=== PATIENT | male | born 1980 ===

== ENCOUNTER 2021-03-08 19:46 | Inpatient (IN) | payer MEDICARE, SELFPAY ==
[2021-03-08 19:49] VITALS: BP 123/87; PULSE 85; RESP 18; TEMP 36.6; O2SAT 98; BMI 29.2
[2021-03-08 20:19] LABS: Basophils % 0.3 %; Eosinophils % 0.2 %; Hematocrit 46.6 % (42.0-52.0); Hemoglobin 15.3 g/dL (11.7-16.6); Lymphocytes # 1.7 10^3/uL (0.8-4.8); Lymphocytes % 13.6 %; Mean Corpuscular HGB Conc 32.8 g/dL (30.0-36.0); Mean Corpuscular Hemoglobin 30.6 pg (28.0-34.0); Mean Corpuscular Volume 93.2 fL (80-94); Mean Platelet Volume 10.1 fL (7.4-10.4); Monocytes # 0.7 10^3/uL (0.2-0.9); Monocytes % 5.3 %; Neutrophils # 9.84 10^3/uL (1.8-7.7); Neutrophils % 80.2 %; Nucleated Red Blood Cells % 0 %; Platelet Count 399 10^3/cmm (130-400); Red Cell Distribution Width 12.9 % (12.1-15.1); White Blood Count 12.3 10^3/uL (4.0-10.0)
[2021-03-08 20:44] LABS: Alanine Aminotransferase 28 U/L (0-41); Albumin Level 4.9 g/dL (3.5-5.2); Alkaline Phosphatase 122 IU/L (40-130); Anion Gap 16.9 (5-19); Aspartate Amino Transferase 19 U/L (0-40); Blood Urea Nitrogen 9 mg/dL (6-20); Calcium 9.2 mg/dL (8.5-10.5); Carbon Dioxide 24 mmol/L (22-29); Chloride 100 mmol/L (98-107); Globulin 3.4 g/dL (1.3-4.6); Glomerular Filtration Rate 106.5 mL/min (90-130); Glucose 79 mg/dL (65-115); Osmolality Calculated 282 mOsm/kg (285-295); Potassium 3.9 mmol/L (3.5-5.1); Sodium 137 mmol/L (136-145); Total Bilirubin 0.4 mg/dL (0.15-1.2); Total Protein 8.3 g/dL (6.6-8.7)
[2021-03-08 20:45] LABS: Acetaminophen < 5.0 ug/mL (10-30); Salicylate < 0.3 mg/dL (3-10)
[2021-03-08 21:02] LABS: Add Urine Microscopic? NO; Charge for UA Resulting for Rev
[2021-03-08 21:18] LABS: Bilirubin Urine Neg (Negative); Blood Urine Neg (Negative); Glucose Urine UA Norm (Normal); Ketones Urine 3+ (Negative); Leukocyte Esterase Urine Negative (Negative); Nitrate Urine Negative (Negative); Protein Urine Neg (Negative); Sulfosalicylic Acid Urine Negative (Negative); Urine Appearance Clear (CLEAR); Urine Color Yellow (Yellow); Urobilinogen Urine 1 mg/dL (Negative); pH Urine 6.5 (5-7)
[2021-03-08 21:22] LABS: Amphetamines Screen Urine Negative (Negative); Barbiturates Screen Urine Negative (Negative); Benzodiazepines Screen Urine Negative (Negative); Cocaine Screen Urine Negative (Negative); Opiate Screen Urine Negative (Negative); PCP Screen Urine Negative (Negative); THC Screen Urine Positive (Negative)
[2021-03-08 22:18] VITALS: BMI 29.2
--- NOTE | 2021-03-08 23:23 | PC.NURSE ---
Skin assessment revealed self inflicted cuts to left arm not needing sutures. No other wounds or injuries noted.
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
[2021-03-09 06:00] VITALS: BP 127/78; PULSE 94; RESP 17; TEMP 36.7; O2SAT 97
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
[2021-03-09 13:37] VITALS: BP 131/84; PULSE 97; RESP 18; TEMP 37.1; O2SAT 98
[2021-03-09 19:45] LABS: Glucose Point of Care 93 mg/dL (70-110)
[2021-03-09 19:52] VITALS: BP 145/99; PULSE 92; RESP 17; TEMP 36.3; O2SAT 98
[2021-03-09] MEDS: trazodone 50 mg Tablet PO (20:14)
--- NOTE | 2021-03-09 20:36 | PC.NURSE ---
pt requested med for sleep. Trazodone 50mg po given.
--- NOTE | 2021-03-09 21:00 | PC.NURSE ---
pt resting quietly with both eyes closed.
[2021-03-10 06:00] VITALS: BP 118/75; PULSE 103; RESP 16; TEMP 37.2; O2SAT 97
[2021-03-10 06:40] LABS: Glucose Point of Care 92 mg/dL (70-110)
[2021-03-10 10:46] VITALS: BP 118/75; PULSE 103; RESP 16; TEMP 37.2; O2SAT 97
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
== END 2021-03-10 12:23 | disposition home or self-care (01) | DRG 882 ==
LOC: ER 19:53 → NP 21:52
PROVIDERS: Admitting Provider Psychiatry & Neurology Psychiatry; Emergency Provider Family Medicine; Visit Provider Psychiatry & Neurology Psychiatry
DX: F43.25 Adjustment disorder with mixed disturbance of emotions and conduct (principal); R45.851 Suicidal ideations; Z63.0 Problems in relationship with spouse or partner; F12.90 Cannabis use, unspecified, uncomplicated; F32.9 Major depressive disorder, single episode, unspecified
CPT/HCPCS: 36416; 80053; 80306; 80307; 81003; 82962; 85025; 99285